=== PATIENT | female | born 1940 | race Caucasian/White ===

== ENCOUNTER → 2018-12-08 | Outpatient (CLI) | payer MEDICARE, OTHER ==
[~2018-12-08] MED LIST: ACET325 PO; ALBU90OI INH; ALBUTEROL 2.5MG/3ML NEB; AMOX875; AMOX875 PO; ASPI325 PO; ASPI81CH PO; ATOR80 PO; Acidophilus La100 GM PO; Augmentin 875-1 EACH PO; BENA20 PO; BENAML10/2; BENAML20/5 PO; BUPR75 PO; Calcium + Vita1 EACH PO; DOCU100 PO; ERGO400 PO; FAMO20 PO; FISH1000 PO; GEMF600 PO; HYDCHL25 PO; HYDGUAL120 PO; HYDR10 PO; HYDR1TAB94 PO; HYDROCODON-ACE1 EACH PO; INSDET100 SC; INSULANPEN SC; JARDIANCE25 MG PO; K-TAB ER8 MEQ PO; LEVFLO500 PO; LEVSOD100 PO; LIDO5TP TOP; LINZESS145 MCG PO; MAGOX 400400 MG PO; MAGOXI400 PO; METF500 PO; NEBI10 PO; Novolog Fl100 UNIT/1 SQ; Omeprazole20 M1 PO; PIOG15; POTA8 PO; PRED20 PO; PREG50 PO; PROP30DR BOTHEYES; Questran4 GM GT; ROSU10TA; SAXA2.5T PO; SELENIUM200 MC2 PO; SENN187 PO; Silvadene20 GM TOP; TOPI100 PO; TRIAMTERENE; TRULICITY0.75 MG/0. SQ; Ventolin Soln3 ML INH; Vitamin B Comple1 EA PO; Vitamin C100 MG PO; XARELTO20 MG PO
== END ==
LOC: LAB SHORT 07:23 → LAB 07:23
DX: D48.5 Neoplasm of uncertain behavior of skin (principal)
CPT/HCPCS: 88312

== ENCOUNTER → 2019-05-05 | Outpatient (CLI) | payer MEDICARE, OTHER | LOC: LAB SHORT 16:58 → LAB EV 16:58 | DX: J02.9 Acute pharyngitis, unspecified (principal) | CPT/HCPCS: 87081; 87807 ==

== ENCOUNTER → 2019-10-19 | Outpatient (CLI) | payer MEDICARE, OTHER ==
[2019-10-19 17:28] LABS: Microalb/Creat Ratio UR, Rand 59.912 mg/g (0.000-30.000)
== END | disposition home or self-care (01) ==
LOC: LAB SHORT 14:26 → LAB 14:26
DX: E11.43 Type 2 diabetes mellitus with diabetic autonomic (poly)neuropathy (principal); E11.22 Type 2 diabetes mellitus with diabetic chronic kidney disease; N18.9 Chronic kidney disease, unspecified
CPT/HCPCS: 82043; 82570

== ENCOUNTER 2021-07-03 12:39 | Emergency (ER) | payer MEDICARE, OTHER ==
[~2021-07-03] VITALS: Ht 165.1 cm; Wt 61.2 kg
== END 2021-07-03 14:20 | disposition home or self-care (01) ==
LOC: ER 12:39
DX: R04.0 Epistaxis (principal); Z88.8 Allergy status to other drugs, medicaments and biological substances; Z91.048 Other nonmedicinal substance allergy status; Z88.1 Allergy status to other antibiotic agents; Z79.899 Other long term (current) drug therapy; Z79.4 Long term (current) use of insulin; E11.9 Type 2 diabetes mellitus without complications; I10 Essential (primary) hypertension; E78.5 Hyperlipidemia, unspecified; Z86.73 Personal history of transient ischemic attack (TIA), and cerebral infarction without residual deficits; I48.91 Unspecified atrial fibrillation; Z87.891 Personal history of nicotine dependence
CPT/HCPCS: 30901; 99283; A9270

== ENCOUNTER 2021-08-12 08:21 | Observation (INO) | payer MEDICARE, OTHER ==
[~2021-08-12] VITALS: Ht 160 cm; Wt 84.9 kg
[~2021-08-12 08:21] MED LIST changes: +KLOR-CON 1010 ME6 PO; +LEVEMIR100 UNIT/1 SC; -POTA8 PO
[2021-08-12 08:51] LABS: BASOPHILS ABSOLUTE AUTO 0.04 K/mm3 (0.00-0.23); BASOPHILS PERCENT AUTO 1 % (0-2); EOSINOPHILS PERCENT AUTO 2 % (0-6); Hematocrit 39.9 % (33.0-51.0); Hemoglobin 12.6 g/dL (11.5-16.0); IMMATURE GRAN ABSOLUTE AUTO 0.02 K/mm3 (0.00-0.10); IMMATURE GRAN PERCENT AUTO 0 % (0-1); LYMPHOCYTES ABSOLUTE AUTO 2.29 K/mm3 (0.84-5.20); LYMPHOCYTES PERCENT AUTO 28 % (21-46); MONOCYTES ABSOLUTE AUTO 0.73 K/mm3 (0.16-1.47); MONOCYTES PERCENT AUTO 9 % (4-13); Mean Corpuscular HGB 27.9 pg (26.0-34.0); Mean Corpuscular HGB Conc 31.6 g/dL (31.5-36.5); Mean Corpuscular Volume 89 fL (80-100); Mean Platelet Volume 10.2 fL (9.1-12.4); NEUTROPHILS ABSOLUTE AUTO 4.99 K/mm3 (1.96-9.15); NEUTROPHILS PERCENT AUTO 60 % (41-73); Platelet Count 278 K/mm3 (150-400); RDW Coefficient Variation 13.3 % (11.7-14.2); RDW Standard Deviation 43.1 fL (35.1-46.3); Red Blood Cell Count 4.51 M/mm3 (3.80-5.20); White Blood Cell Count 8.27 K/mm3 (4.00-11.30)
[2021-08-12 09:10] LABS: Albumin, Blood 3.4 g/dL (3.4-5.0); Albumin/Globulin Ratio 0.9 (0.8-1.8); Bilirubin, Total 0.7 mg/dL (0.1-1.0); Calcium, Blood 9.1 mg/dL (8.5-10.1); Creatinine, Blood 1.04 mg/dL (0.40-1.00); Globulin, Blood 3.7 g/dL (2.2-4.0); Potassium, Blood 4.2 mmol/L (3.5-5.5); Total Protein, Blood 7.1 g/dL (6.4-8.2)
[2021-08-12] MEDS ORDERED: CARV25 PO (16:56)
[2021-08-12] MEDS ORDERED: FENO48 PO (16:57)
[2021-08-12] MEDS ORDERED: NOVOLOG FL100 UNIT/3 SC (16:57)
[2021-08-12] MEDS ORDERED: METO5A PO (16:58)
[2021-08-12] MEDS ORDERED: Hair, Skin & N1 EACH PO (16:59)
--- NOTE | 2021-08-12 17:14 | NUR ---
SUMMARY PT ADMITTED FROM THE ER FOR CHEST PAIN, PT WITH PARTIAL BLINDNESS BUT ABLE TO STAND AND TRANSFER FROM THE GURNEY TO THE BED WITH MINIMAL ASSIST, PT HAD THE FIRST PART OF THE STRESS TEST DONE WHILE IN ER, PLAN FOR 2ND PORTION TOMORROW AROUND 2PM, PT WITH MEMORY LOSS AND IS A POOR HISTORIAN, ORIENTED PT TO ROOM AND CALL SYSTEM, PT'S DAUGHTERS HERE TO SEE THE PT, THEY GAVE THE PT A SHOWER, PT JOSE ANGEL WELL, NO COMPLAINTS, VSS, WILL CONT TO MONITOR
--- NOTE | 2021-08-12 17:26 | NUR ---
NOTIFIED PT'S MED REC IS DONE
[2021-08-13 04:44] LABS: BASOPHILS ABSOLUTE AUTO 0.04 K/mm3 (0.00-0.23); BASOPHILS PERCENT AUTO 0 % (0-2); EOSINOPHILS ABSOLUTE AUTO 0.21 K/mm3 (0.00-0.68); EOSINOPHILS PERCENT AUTO 2 % (0-6); Hematocrit 39.7 % (33.0-51.0); Hemoglobin 12.8 g/dL (11.5-16.0); IMMATURE GRAN ABSOLUTE AUTO 0.03 K/mm3 (0.00-0.10); IMMATURE GRAN PERCENT AUTO 0 % (0-1); LYMPHOCYTES ABSOLUTE AUTO 2.96 K/mm3 (0.84-5.20); LYMPHOCYTES PERCENT AUTO 28 % (21-46); MONOCYTES PERCENT AUTO 9 % (4-13); Mean Corpuscular HGB 28.3 pg (26.0-34.0); Mean Corpuscular HGB Conc 32.2 g/dL (31.5-36.5); Mean Corpuscular Volume 88 fL (80-100); Mean Platelet Volume 10.6 fL (9.1-12.4); NEUTROPHILS ABSOLUTE AUTO 6.44 K/mm3 (1.96-9.15); NEUTROPHILS PERCENT AUTO 61 % (41-73); Platelet Count 304 K/mm3 (150-400); RDW Coefficient Variation 13.3 % (11.7-14.2); RDW Standard Deviation 42.9 fL (35.1-46.3); Red Blood Cell Count 4.53 M/mm3 (3.80-5.20); White Blood Cell Count 10.58 K/mm3 (4.00-11.30)
[2021-08-13 04:59] LABS: Anion Gap 6 mmol/L (6-16); Blood Urea Nitrogen 22 mg/dL (8-24); Bun/Creatinine Ratio 22.7 (12.0-20.0); CHOL/HDL RATIO 3.6; CO2, Blood 27 mmol/L (21-32); Calcium, Blood 9.3 mg/dL (8.5-10.1); Chloride, Blood 108 mmol/L (98-108); Cholesterol 127 mg/dL (50-200); Creatinine, Blood 0.97 mg/dL (0.40-1.00); Glomerular Filtration Rate 55 (60-); Glucose, Blood 82 mg/dL (70-99); HDL Cholesterol 35 mg/dL (>39); LDL/HDL RATIO 1.2; Low Density Lipoprotein Chol 41 mg/dL (0-110); Magnesium, Blood 1.9 mg/dL (1.6-2.4); Potassium, Blood 3.8 mmol/L (3.5-5.5); Sodium, Blood 141 mmol/L (136-145); Triglycerides 254 mg/dL (30-160); Very Low Density Lipoprot Chol 50 mg/dL (6-32)
--- NOTE | 2021-08-13 05:12 | NUR ---
SHIFT SUMMARY PATIENT ALERT WITH SOME FORGETFULLNESS X 1 NOSE BLEEDING NOTED RELIEF AFTER FIRST AID.PT INDEPENDENT TO THE BATHROOM DENIES CHEST PAIN NO SOB NOTED .NO COFFEE PT HAS 2ND STRESS TEST THIS AFTERNOON .
[2021-08-13] MEDS ORDERED: ASPI81CH PO (13:26)
--- NOTE | 2021-08-13 17:09 | NUR ---
ALERT. FORGETFUL. ASKS OFTEN IF GOING HOME TODAY. UPDATED ON CONDITION. DENIES ANY PAIN TODAY. PULLED IV WITH NEW ONE STARTED. STRESS TEST DONE, AWAITING RESULTS. UNLABORED RESPIRATIONS. TELE ON. [facility]
--- NOTE | 2021-08-14 04:38 | NUR ---
SHIFT SUMMARY PATIENT ALERT AND ORIENTED TO SELF DENIES ANY PAIN PT REDIRECTED SEVERAL TIMES FOR DISCONNECTING TELE .DR HAMLIN CALLED WITH PT STRESS RESULTS ARE CLEARED PT CAN OKAY TO D/C HOME THIS MORNING .
--- NOTE | 2021-08-14 09:59 | NUR ---
REPORT GIVEN TO CORTEZ HARRIS. ANSWER ALL QUESTIONS. VERBALIZES UNDERSTANDING
== END 2021-08-14 15:02 ==
LOC: ER 08:21 → MEDS 08:22
PROVIDERS: Family Medicine; ADMIT Internal Medicine
DX: I25.119 Atherosclerotic heart disease of native coronary artery with unspecified angina pectoris (principal); I13.10 Hypertensive heart and chronic kidney disease without heart failure, with stage 1 through stage 4 chronic kidney disease, or unspecified chronic kidney disease; N18.30 Chronic kidney disease, stage 3 unspecified; E11.22 Type 2 diabetes mellitus with diabetic chronic kidney disease; I48.20 Chronic atrial fibrillation, unspecified; E03.9 Hypothyroidism, unspecified; E78.5 Hyperlipidemia, unspecified; F03.90 Unspecified dementia, unspecified severity, without behavioral disturbance, psychotic disturbance, mood disturbance, and anxiety; Z88.8 Allergy status to other drugs, medicaments and biological substances; Z91.048 Other nonmedicinal substance allergy status; Z79.01 Long term (current) use of anticoagulants; Z79.4 Long term (current) use of insulin; Z87.891 Personal history of nicotine dependence; Z66 Do not resuscitate
CPT/HCPCS: 36415; 71045; 78452; 80048; 80053; 80061; 82947; 83036; 83735; 84484; 85025; 93005; 93010; 93017; 96372; 99285-25; A9270; A9500; G0378; J0706; J1650; J1815; J2785

== ENCOUNTER → 2022-04-29 | Outpatient (CLI) | payer MEDICARE, OTHER ==
[~2022-04-29] MED LIST changes: +CARV25 PO; +FENO48 PO; +Hair, Skin & N1 EACH PO; +METO5A PO; +NOVOLOG FL100 UNIT/3 SC
[2022-04-29 13:26] LABS: Appearance, Urine Hazy (Clear); Bilirubin, Urine Neg (Neg); Blood, Urine 1+ (Neg); Color, Urine Yellow (P-Yellow); Glucose Qualitative, Urine Neg (Neg); Ketones, Urine Neg (Neg); Leukocyte Esterase, Urine 2+ (Neg); Nitrite, Urine Neg (Neg); Protein, Urine 1+ (Neg); Specific Gravity, Urine 1.025 (1.003-1.022); Urobilinogen, Urine NORM (Normal)
[2022-04-29 13:30] LABS: Bacteria Many /hpf; Squamous Epithelial Cells Mod /hpf (Few); White Blood Cells, Urine TNTC /hpf (0-5)
== END | disposition home or self-care (01) ==
LOC: LAB SHORT 08:00
PROVIDERS: Family Medicine
DX: N39.0 Urinary tract infection, site not specified (principal)
CPT/HCPCS: 81001; 87077; 87086; 87186

== ENCOUNTER → 2024-03-03 | Outpatient (CLI) | payer MEDICARE, OTHER ==
[2024-03-03 14:00] LABS: Source, Urine Voided
[2024-03-03 15:32] LABS: Appearance, Urine Clear (Clear); Bilirubin, Urine Neg (Neg); Blood, Urine Neg (Neg); Color, Urine Yellow (P-Yellow); Glucose Qualitative, Urine Neg (Neg); Ketones, Urine Neg (Neg); Leukocyte Esterase, Urine 1+ (Neg); Nitrite, Urine Neg (Neg); Protein, Urine 3+ (Neg); Urobilinogen, Urine NORM (Normal)
[2024-03-03 15:49] LABS: Bacteria Few /hpf; Red Blood Cells, Urine 0-2 /hpf (0-2); Squamous Epithelial Cells Few /hpf (Few)
== END ==
LOC: LAB SHORT 13:57 → LAB 13:57
PROVIDERS: Family Medicine
DX: N39.0 Urinary tract infection, site not specified (principal)
CPT/HCPCS: 81001; 87086

== ENCOUNTER → 2024-06-29 | Outpatient (CLI) | payer MEDICARE, OTHER ==
[2024-06-30 11:44] LABS: Source, Urine Voided
[2024-06-30 13:07] LABS: Appearance, Urine Clear (Clear); Bilirubin, Urine Neg (Neg); Blood, Urine Neg (Neg); Color, Urine Yellow (P-Yellow); Glucose Qualitative, Urine Neg (Neg); Ketones, Urine Neg (Neg); Leukocyte Esterase, Urine 2+ (Neg); Nitrite, Urine Neg (Neg); Protein, Urine 3+ (Neg); Urobilinogen, Urine NORM (Normal)
[2024-06-30 13:22] LABS: Bacteria Mod /hpf; Red Blood Cells, Urine Not Seen /hpf (0-2); Squamous Epithelial Cells Few /hpf (Few)
== END | disposition home or self-care (01) ==
LOC: LAB 11:41 → LAB SHORT 11:41
PROVIDERS: Family Medicine
DX: N39.0 Urinary tract infection, site not specified (principal)
CPT/HCPCS: 81001; 87086

== ENCOUNTER → 2024-07-13 | Outpatient (CLI) | payer MEDICARE, OTHER | LOC: LAB SHORT 11:33 → LAB 11:33 | DX: E11.69 Type 2 diabetes mellitus with other specified complication (principal) | CPT/HCPCS: 82043 ==

== ENCOUNTER 2024-09-01 00:21 | Emergency (ER) | payer MEDICARE, OTHER ==
[~2024-09-01] VITALS: Ht 167.6 cm; Wt 65.8 kg
[2024-09-01 00:27] VITALS: BP 185/73
== END 2024-09-01 04:30 | disposition home or self-care (01) ==
LOC: ER 00:21
DX: M62.89 Other specified disorders of muscle (principal); E11.22 Type 2 diabetes mellitus with diabetic chronic kidney disease; N18.30 Chronic kidney disease, stage 3 unspecified; I10 Essential (primary) hypertension; E03.9 Hypothyroidism, unspecified; W06.XXXA Fall from bed, initial encounter; Z87.891 Personal history of nicotine dependence; Z86.73 Personal history of transient ischemic attack (TIA), and cerebral infarction without residual deficits; Z79.4 Long term (current) use of insulin; Z79.899 Other long term (current) drug therapy; Z88.1 Allergy status to other antibiotic agents; Z88.8 Allergy status to other drugs, medicaments and biological substances; Z91.048 Other nonmedicinal substance allergy status
CPT/HCPCS: 70450; 99283-25